=== PATIENT | male | born 1975 | race Caucasian/White ===

== ENCOUNTER 2016-08-28 13:00 | Emergency (ER) | payer MEDICARE, MEDICAID ==
[2016-08-28 13:38] VITALS: BP 128/80
[2016-08-28 15:19] LABS: Hematocrit 45.3 % (42.0-52.0); Hemoglobin 15.1 gm/dL (13.5-18.0); Mean Cell Volume 85.6 fl (78-100); Mean Corpuscular Hemoglobin 28.5 pg (27-31); Mean Corpuscular Hgb Conc 33.3 g/dl (32-36); Mean Platelet Volume 11.2 fl (6.0-9.5); Neutrophil # 7.1 K/mm3 (1.3-6.0); Neutrophil % 78.8 % (42-75.0); Platelet Count 205 K/mm3 (150-450); Red Blood Count 5.29 M/mm3 (4.7-6.0); Red Cell Distribution Width 11.9 % (11.5-14.0)
[2016-08-28 15:34] LABS: ALT 20 U/L (19-67); AST 15 U/L (0-48); Albumin * 3.9 gm/dl (3.4-5.0); Alkaline Phosphatase * 68 U/L (50-170); Anion Gap 15.3 mmol/L (6.8-13.8); BUN/Creatinine Ratio 8.8 (9.0-21.6); Bilirubin, Total 0.8 mg/dL (0.0-1.1); Blood Urea Nitrogen 8 mg/dL (6-23); Ca. Corrected For Albumin 8.7 mg/dL (8.4-10.2); Calcium * 8.9 mg/dL (7.9-10.9); Carbon Dioxide 27.8 mmol/L (24-32.6); Chloride 100 mmol/L (97-106); Glucose * 97 mg/dL (70-110); Potassium 4.1 mmol/L (3.4-4.6); Sodium 139 mmol/L (132-142); Total Protein 7.4 gm/dL (6.2-8.2)
[2016-08-28 15:35] LABS: Troponin I Less than 0.017 ng/ml (0.00-0.10)
--- NOTE | 2016-08-28 16:18 | ERNOTE ---
Back Pain ER HPI Date of Service: 08/28/16 Presenting Symptoms: other Time Seen by Provider: 08/28/16 14:30 Source: patient Exam Limitations: no limitations Immunizations: IMMUNIZATION HX Immunizations Up to Date Yes History of Influenza Vaccine No Hx Pneumococcal Vaccination No Allergies/Adverse Reactions: Allergies bupropion HCl [From Wellbutrin] Adverse Reaction (Mild, Verified 08/28/16 13:38) Other anxious Home Medications: HOME MEDICATIONS Simvastatin [Zocor] 40 mg PO HS 07/19/15 [Last Taken Unknown] Tiotropium [place] [Spiriva Respimat] 4 gm IH DAILY 07/19/15 [Last Taken Unknown ] Dextroamphetamine/Amphetamine [Amphetamine Salts] 20 mg PO BID 03/31/16 [Last Taken Unknown] Ezetimibe [Zetia] 10 mg PO DAILY 03/31/16 [Last Taken Unknown] Lorazepam [Ativan] 2 mg PO TID PRN 03/31/16 [Last Taken Unknown] Omeprazole 40 mg PO DAILY 03/31/16 [Last Taken Unknown] Topiramate [Qudexy Xr] 150 mg PO BID 03/31/16 [Last Taken Unknown] Albuterol Sulfate [Albuterol Sulfate 2.5 MG/0.5ML] 2.5 mg IH Q4H PRN #0 vial.neb 04/01/16 [Last Taken Unknown] Citalopram Hydrobromide [Celexa] 40 mg PO DAILY tablet 04/01/16 [Last Taken Unknown] Naltrexone HCl [ReVia] 50 mg PO 1700 04/01/16 [Last Taken Unknown] Risperidone [Risperdal] 4 mg PO HS #1 tablet 04/01/16 [Last Taken Unknown] Sulindac 200 mg PO BID #60 tab 08/28/16 [Last Taken Unknown] Narrative: Left lateral rib pain for 4 days, no history of injury. Hurts to move twist breathe or cough. Timing: Reports: intermittent Quality/Severity: Reports: mild, moderate Location of pain: Reports: other Activities at Onset: Reports: none Recent Injury?: Reports: no Possible Precipitating Factor: Reports: none Modifying Factors - (Improves): Reports: other - rest Modifying Factors - (Worsens): Reports: movement to right, movement to left, movement flexion, cough/deep breaths Associated Symptoms: Reports: none Review of Systems - Review of Systems Constitutional: Present: no symptoms reported EYE: Present: no symptoms reported ENT: Present: no symptoms reported Respiratory: Present: no symptoms reported Cardiology: Present: no symptoms reported Gastrointestinal/Abdominal: Present: no symptoms reported Genitourinary: Present: no symptoms reported Musculoskeletal: Present: See HPI Skin: Present: no symptoms reported Neurological: Present: no symptoms reported Endocrine: Present: no symptoms reported Hematologic/Lymphatic: Present: no symptoms reported Psych: Present: no symptoms reported All Other Systems: All systems neg except as marked - Patient's Past Medical History Patient History - Medical: Anxiety, Bipolar, Depression, Other - von Recklinghausen's Patient History - Cardiac/Respiratory: Asthma, COPD, CVA/Stroke - 2010, Hypertension, Hyperlipidemia, Other - collapsed lung Patient History - Cancer: No Hx of Cancer Patient History - Surgical Procedures: No surgical history - Family History Mother Family History - Medical: History Unknown Family History - Cardiac/Respiratory: Coronary Heart Disease, TIA Family History - Cancer: History Unknown Father Family History - Medical: No pertinent hx Family History - Cardiac/Respiratory: Hyperlipidemia Family History - Cancer: No Hx of cancer - Social History Living Situations: home Does anyone smoke in the home?: Yes Smoking Status: Current every day smoker Have you smoked in the past 12 months: Yes Alcohol Use: none Drug Use: none Physical Exam - Physical Exam General Appearance: Present: wd/wn, alert, no apparent distress Eye Exam: Normal inspection: bilateral, PERRL: bilateral, EOMI: bilateral Ears, Nose, Throat: Present: normal ENT inspection, hearing grossly normal Neck: Present: normal inspection, nontender Respiratory: Present: no respiratory distress, normal breath sounds Cardiovascular/Chest: Present: regular rate, rhythm, no murmur Gastrointestinal/Abdominal: Present: normal bowel sounds, nontender, nondistended, soft, no organomegaly Back Exam: Present: normal inspection Extremity Exam: Present: normal inspection, no edema Neurological Exam: Present: alert, oriented, normal mood/affect Skin Exam: Present: other - multiple neural skin tags Lymphatic Exam: Present: no adenopathy ED Progress - Results and Orders Patient's Lab Results:: I have reviewed the patient's lab results. - Vital Signs Patient's Vital Signs:: I have reviewed the patient's vital signs. Vital Signs: Vital Signs 08/28/16 13:36 Temperature 36 C L Pulse Rate 95 Respiratory 16 Rate Blood Pressure 128/80 O2 Sat by Pulse 99 Oximetry - X-Ray X-Ray #1 X-Ray: chest Interpretation: Interp. by me - non acute X-Ray #2 X-Ray: ribs Interpretation: Interp. by me - non acute - Progress/Reassessment Chief Complaint: Back Pain Departure Clinical Impression: Musculoskeletal chest pain - Departure Disposition: Home self-care Condition: Good Instructions: Musculoskeletal Pain Additional Instructions: Followup with your doctor in 1-2 weeks. Prescriptions: Sulindac 200 mg PO BID #60 tab
== END 2016-08-28 16:23 | disposition home or self-care (01) ==
LOC: ER 13:00
DX: R07.89 Other chest pain (principal); F17.210 Nicotine dependence, cigarettes, uncomplicated

== ENCOUNTER 2016-10-25 20:40 | Emergency (ER) | payer MEDICARE, MEDICAID ==
[2016-10-25 20:59] VITALS: BP 120/72
--- NOTE | 2016-10-25 21:13 | ERNOTE ---
ENT HPI Presenting Symptoms: dental pain Time Seen by Provider: 10/25/16 21:11 Source: patient Exam Limitations: no limitations - Immun/Allergies/Home Medications Immunizations: IMMUNIZATION HX Immunizations Up to Date Yes History of Influenza Vaccine No Hx Pneumococcal Vaccination No Allergies/Adverse Reactions: Allergies Allergy/AdvReac Type Severity Reaction Status Date / Time bupropion HCl AdvReac Mild Other Verified 08/28/16 13:38 [From Wellbutrin] Home Medications: HOME MEDICATIONS Simvastatin [Zocor] 40 mg PO HS 07/19/15 [Last Taken Unknown] Dextroamphetamine/Amphetamine [Amphetamine Salts] 20 mg PO BID 03/31/16 [Last Taken Unknown] Ezetimibe [Zetia] 10 mg PO DAILY 03/31/16 [Last Taken Unknown] Clindamycin HCl [Cleocin HCl] 300 mg PO QID #40 capsule 10/25/16 [Last Taken Unknown] Nabumetone 750 mg PO BID #30 tab 10/25/16 [Last Taken Unknown] Risperidone [Risperdal] 4 mg PO HS PRN 10/25/16 [Last Taken Unknown] - History of Present Illness Narrative: pt had onset of left jaw pain and swelling this morning, unknown if fever Severity: Present: moderate Prearrival Treatment: Present: prescription meds - has been using PCN that he had left over from previous infection Review of Systems - Review of Systems Constitutional: Present: fever, chills. Absent: recent illness EYE: Present: no symptoms reported ENT: Present: See HPI Respiratory: Present: no symptoms reported Cardiology: Present: no symptoms reported Gastrointestinal/Abdominal: Present: no symptoms reported Genitourinary: Present: no symptoms reported Musculoskeletal: Present: no symptoms reported Skin: Present: lumps Neurological: Present: no symptoms reported Endocrine: Present: no symptoms reported Hematologic/Lymphatic: Present: no symptoms reported Psych: Present: no symptoms reported - Patient's Past Medical History Patient History - Medical: Anxiety, Bipolar, Depression, Other Patient History - Cardiac/Respiratory: No pertinent hx Patient History - Cancer: No Hx of Cancer Patient History - Surgical Procedures: No surgical history Patient History - Other: None - Family History Mother Family History - Medical: History Unknown Family History - Cardiac/Respiratory: Coronary Heart Disease, TIA Father Family History - Medical: No pertinent hx Family History - Cardiac/Respiratory: Hyperlipidemia - Social History Living Situations: spouse Abuse History: No History of abuse Psych History: Hx of Anxiety, Hx of Depression, Hx of Bipolar Disorder Does anyone smoke in the home?: Yes Smoking Status: Current every day smoker Alcohol Use: none Drug Use: none - Immunizations Immunizations Up to Date: Yes Hx Pneumococcal Vaccination: No History of Influenza Vaccine: No Physical Exam - Physical Exam General Appearance: Present: wd/wn, alert, mild distress Ears, Nose, Throat: Present: other - left mandible is swollen moderately. gingiva around the 2nd molar is swollen and mildly erythematous. Teeth are generally in poor condition Neck: Present: normal inspection, nontender. Absent: lymphadenopathy (R), lymphadenopathy (L) Respiratory: Present: no respiratory distress Neurological Exam: Present: alert, oriented, normal mood/affect, no motor/ sensory deficits Skin Exam: Present: normal color, warm/dry Lymphatic Exam: Present: no adenopathy ED Progress - Vital Signs Patient's Vital Signs:: I have reviewed the patient's vital signs. Vital Signs: Vital Signs 10/25/16 20:52 Temperature 37.9 C H Pulse Rate 89 Respiratory 16 Rate Blood Pressure 120/72 O2 Sat by Pulse 96 Oximetry - Progress/Reassessment Chief Complaint: Dental Problem Departure Clinical Impression: Dental abscess - Departure Disposition: Home Follow Up Needed Condition: Good Additional Instructions: see a dentist as soon as possible. Referrals: Cornelio Silverio MD [Primary Care Provider] - Prescriptions: Clindamycin HCl [Cleocin HCl] 300 mg PO QID #40 capsule Nabumetone 750 mg PO BID #30 tab
--- OUTSIDE RECORDS SUMMARY | 2016-10-25 21:17 | XMS REPORT | Continuity of Care Document ---
:1975 Author Organization [facility] ([facility]) [place] [address] Phone [phone] Care Team Providers Name Role Phone Unavailable Primary Care Provider Unavailable Source Comments This disclosure is being made pursuant to the Care Everywhere program, applicable federal and state laws, and may not contain all informaitonavailable regarding this patient.[facility] ([facility]) Active Allergies and Adverse Reactions Not on File Current Medications Not on file Active Problems Not on file Social History Tobacco Use Types Packs/Day Years Used Date Never Assessed Plan of Care Health Maintenance Due Date Last Done Comments Hepatitis B Vaccine (1 of 3 - Primary Series) 1975 Tdap Vaccine 1986 Lipid Disorder Screening 1993 MMR Vaccine 1993 Td Vaccine 1993 Influenza Vaccine: Seasonal (#1) 03/28/2016 Results from Last 3 Months Not on file
[2016-10-25] MEDS ORDERED: CLINDAMYCIN HCL 150 MG CAPSULE PO ONE (21:28)
[2016-10-25] MEDS ORDERED: KETOROLAC TROMETHAMINE 60 MG/2 ML VIAL IM ONE ×2 (21:30→21:35)
[2016-10-25] MEDS ORDERED: CLINDAMYCIN HCL 150 MG CAPSULE ONE (21:31)
== END 2016-10-25 21:41 | disposition home or self-care (01) ==
LOC: ER 20:40
DX: K04.7 Periapical abscess without sinus (principal); F17.210 Nicotine dependence, cigarettes, uncomplicated; F31.9 Bipolar disorder, unspecified